=== PATIENT | male | born 1985 | race Caucasian/White ===

== ENCOUNTER 2017-04-06 20:23 | Emergency (ER) | payer SELFPAY, OTHER ==
[2017-04-06] MEDS: diazePAM 5 MG TAB PO (22:21)
[2017-04-06] MEDS: methylPREDNISolone INJ 125 MG/2 ML VIAL (J2930) IM (22:22)
== END 2017-04-06 22:59 | disposition home or self-care (01) ==
LOC: M ED 20:23
DX: S46.912A Strain of unspecified muscle, fascia and tendon at shoulder and upper arm level, left arm, initial encounter (principal); X58.XXXA Exposure to other specified factors, initial encounter; Y92.89 Other specified places as the place of occurrence of the external cause; Y93.89 Activity, other specified; Y99.8 Other external cause status; F17.210 Nicotine dependence, cigarettes, uncomplicated
CPT/HCPCS: J2930

== ENCOUNTER 2019-09-17 16:59 | Emergency (ER) | payer OTHER, SELFPAY ==
[~2019-09-17] VITALS: Ht 170.2 cm; Wt 72.7 kg
[~2019-09-17 16:59] MED LIST: OXYC-1 PO; OXYC-517 PO; PRED20TA PO; VALI5TAB PO
[2019-09-17 19:00] VITALS: BP 122/87
== END 2019-09-17 19:04 | disposition home or self-care (01) ==
LOC: M ED 16:59
DX: F11.20 Opioid dependence, uncomplicated (principal); F17.200 Nicotine dependence, unspecified, uncomplicated

== ENCOUNTER 2020-02-04 16:29 | Emergency (ER) | payer OTHER ==
[~2020-02-04] VITALS: Ht 170.2 cm; Wt 72.7 kg
[2020-02-04 17:17] LABS: HEMATOCRIT 42.1 % (42.0-52.0); HEMOGLOBIN 14.4 g/dl (13.5-17.5); MEAN CORPUSCULAR HEMOGLOBIN 29.6 pg (27.0-33.0); MEAN CORPUSCULAR HGB CONC 34.2 g/dl (32.0-36.5); MEAN CORPUSCULAR VOLUME 86.6 fl (80.0-96.0); PLATELET COUNT, AUTOMATED 235 10^3/uL (150-450); RED BLOOD COUNT 4.86 10^6/uL (4.30-6.10); WHITE BLOOD COUNT 12.4 10^3/uL (4.0-10.0)
[2020-02-04 17:42] LABS: ACETAMINOPHEN LEVEL < 2.0 UG/ML (10.0-30.0); ALBUMIN 3.7 GM/DL (3.2-5.2); ALT/SGPT 32 U/L (12-78); BILIRUBIN,DIRECT 0.2 MG/DL (0.0-0.2); BILIRUBIN,TOTAL 0.6 MG/DL (0.2-1.0); BLOOD UREA NITROGEN 13 MG/DL (7-18); CALCIUM LEVEL 8.7 MG/DL (8.5-10.1); CARBON DIOXIDE LEVEL 27 MEQ/L (21-32); CHLORIDE LEVEL 103 MEQ/L (98-107); CREATININE FOR GFR 1.13 MG/DL (0.70-1.30); GLOMERULAR FILTRATION RATE > 60.0 (>60); GLUCOSE, FASTING 117 MG/DL (70-100); POTASSIUM SERUM 3.6 MEQ/L (3.5-5.1); SALICYLATE LEVEL 2.2 MG/DL (5.0-30.0); SODIUM LEVEL 137 MEQ/L (136-145); TOTAL PROTEIN 7.1 GM/DL (6.4-8.2)
[2020-02-04 18:00] LABS: AMPHETAMINES LEVEL URINE POSITIVE (NEGATIVE); BARBITURATES URINE NEGATIVE (NEGATIVE); BENZODIAZEPINES URINE NEGATIVE (NEGATIVE); CANNABINOIDS URINE NEGATIVE (NEGATIVE); COCAINE METABOLITE URINE NEGATIVE (NEGATIVE); METHADONE URINE NEGATIVE (NEGATIVE); OPIATES URINE POSITIVE (NEGATIVE); PHENCYCLIDINE URINE NEGATIVE (NEGATIVE)
[2020-02-04 22:39] VITALS: BP 114/65
== END 2020-02-04 23:29 | disposition home or self-care (01) ==
LOC: M ED 16:29
DX: F11.120 Opioid abuse with intoxication, uncomplicated (principal)
CPT/HCPCS: 80048; 80076; 80307; 84443; 85027; 99284; G0480

== ENCOUNTER → 2020-04-01 | Outpatient (CLI) | payer OTHER ==
--- NOTE | 2020-04-01 14:26 | REP ---
INDICATION: TORSION OF APPENDIX TESTIS COMPARISON: None. TECHNIQUE: Pelayo scale and color Doppler evaluation using linear and curved array transducer with color Doppler evaluation. FINDINGS: The testicles and epididymi are relatively normal in contour, size, echogenicity, vascularity and overall appearance. Incidental 3 mm left epididymal head cyst noted. There is no evidence for intratesticular mass lesion, infectious/inflammatory process, with torsion. No obvious hydroceles or varicoceles are identified. A right appendix testis is appreciated and evaluation for vascular flow was limited due to patient motion. A small adjacent hydroceles. Findings are nonspecific and torsion of the appendix testis cannot definitively be excluded. Right testicle measures 4.5 x 2.1 x 2.7 cm. Left testicle measures 4.3 x 2.5 x 2.9 cm. IMPRESSION: 1. Normal appearance to the testicles and epididymi. 2. A mildly prominent asymmetric right appendix testis is appreciated and motion limits evaluation for associated vascularity. Close clinical observation may be warranted. <Electronically signed by Deep Coy > 04/01/20 [id number]
== END ==
LOC: M RAD 13:38
PROVIDERS: ATTEND Surgery
DX: N44.03 Torsion of appendix testis (principal)

== ENCOUNTER 2020-04-29 22:12 | Emergency (ER) | payer OTHER ==
[~2020-04-29] VITALS: Ht 170.2 cm; Wt 74.6 kg
[2020-04-29 22:13] VITALS: BP 144/88
--- OUTSIDE RECORDS SUMMARY | 2020-04-29 22:20 | CCD | Continuity of Care Document ---
Author Author Feliciano GARCIA M.D. Organization Unknown Address [address] [place] [address] Phone [phone] Problems Description No Information Available Social History Type Date Description Comments Sex Unknown Allergies, Adverse Reactions, Alerts Description No Known Drug Allergies Medications Description No Information Available Immunizations Description No Information Available Vital Signs Date Vital Result Comment 03/11/2020 8:41am BP Systolic 123 mmHg BP Diastolic 82 mmHg Heart Rate 84 /min Respiratory Rate 18 /min Body Temperature 97.5 F Weight 149.00 lb Results Description No Information Available Procedures Description No Information Available Medical Devices Description No Information Available Encounters Description No Information Available Assessments Description No Information Available Plan of Treatment No Information Available Functional Status Description No Information Available Mental Status Description No Information Available Referrals Description No Information Available
--- OUTSIDE RECORDS SUMMARY | 2020-04-29 22:20 | CCD ---
Author Author Manoj Feliciano Lawrencewna Organization Unknown Address [address] [place] [address] Phone Unavailable Care Team Providers Care Phlebotomist Medical Lab Assistant Name Role Phone Cynthia Aranda PCP Allergies, Adverse Reactions, Alerts No Data in Section Problem List Concept Problem Description Status Start Date Created Date Resolv ed Date Snomed Code F11.20 Opioid Use Disorder, Severe Active 03/12/2020 Medications No Data in Section Social History Social History Element Description Concept Effective Date Smoking Status Unknown if ever smoked [id number] Immunizations No Data in Section Vital Signs No Data in Section Procedures Date Concept Id Description Targeted Site Concept Targeted Site Concept Type 03/11/2020 H2011 Crisis Intervention - Brief CPT Patient has no history of implantable de vices Encounters Encounter Start Date End Date Encounter Type Description Diagnosis Di agnosis Desc Location Author First Name Author Last Name Npid Taxonomy Cod e Taxonomy Desc Phone Number Location Addr1 Location Addr2 Location [facility] Location Sta Location [facility] [id number] 03/11/2020 03/11/2020 H2011 Crisis Intervention - Brief F11.20 Opioid dependence, uncomplicated [facility] Assisted Manoj [place] [id number] Licensed Appraiser [phone] [address] [place] [address] Plan of Treatment No Data in Section Lab Results No Data in Section Instructions No Data in Section Insurance Providers Insurance Id Policy Effective Date Policy Thru Date Company N caesar [id number] 2020 [facility]
--- OUTSIDE RECORDS SUMMARY | 2020-04-29 22:20 | CCD | Continuity of Care Document ---
Author Author Feliciano GARCIA M.D. Organization Unknown Address [address] [place] [address] Phone [phone] Problems Description No Information Available Social History [...]
--- OUTSIDE RECORDS SUMMARY | 2020-04-29 22:20 | CCD ---
Author Author [facility] Organization [facility] Address Unknown Phone Unavailable Care Team Providers Care [employer] T[employer] Curer Name Role Phone Lila ISABEL MD Unavailable Unavailable CHALOLila MD Unavailable Unavailable CHALOLila MD Unavailable Unavailable CHALOLila MD Unavailable Unavailable CHALOLila MD Unavailable Unavailable CHALOLila MD Unavailable Unavailable CHALOLila MD Unavailable Unavailable CHALOLila MD Unavailable Unavailable CHALOLila BLAIR MD Unavailable Unavailable CHALOLila BLAIR MD Unavailable Unavailable CHALOLila MD Unavailable Unavailable CHALOLila MD Unavailable Unavailable CHALOLila MD Unavailable Unavailable CHALOLila MD Unavailable Unavailable CHALOLila MD Unavailable Unavailable CHALOLila MD Unavailable Unavailable CHALOLila MD Unavailable Unavailable CHALOLila MD Unavailable Unavailable CHALOLila MD Unavailable Unavailable CHALOLila MD Unavailable Unavailable CHALOLila BLAIR MD Unavailable Unavailable Lila ISABEL MD Unavailable Unavailable Lila ISABEL MD Unavailable Unavailable Lila ISABEL MD Unavailable Unavailable Lila ISABEL MD Unavailable Unavailable Lila ISABEL MD Unavailable Unavailable Lila ISABEL MD Unavailable Unavailable CHALOLila MD Unavailable Unavailable CHALOLila MD Unavailable Unavailable CHALOLila MD Unavailable Unavailable CHALO, M ELOY TAN Unavailable Unavailable CHALO, M ELOY MD Unavailable Unavailable CHALO, M ELOY MD Unavailable Unavailable CHALO, M ELOY MD Unavailable Unavailable CHALO, M ELOY MD Unavailable Unavailable CHALO, M ELOY MD Unavailable Unavailable CHALO, M ELOY MD Unavailable Unavailable CHALO, M ELOY MD Unavailable Unavailable CHALO, M ELOY MD Unavailable Unavailable CHALO, M ELOY MD Unavailable Unavailable CHALO, M ELOY MD Unavailable Unavailable CHALO, M ELOY MD Unavailable Unavailable CHALO, M ELOY MD Unavailable Unavailable Cynthia Aranda Unavailable Re-disclosure Warning The records that you are about to access may contain information from federally-assisted alcohol or drug abuse programs. If such information is present, then the following federally mandated warning applies: This information has been disclosed to you from records protected by federal confidentiality rules (42 CFR part 2). The federal rules prohibit you from making any further disclosure of this information unless further disclosure is expressly permitted by the written consent of the person to whom it pertains or as otherwise permitted by 42 CFR part 2. A general authorization for the release of medical or other information is NOT sufficient for this purpose. The Federal rules restrict any use of the information to criminally investigate or prosecute any alcohol or drug abuse patient.The records that you are about to access may contain highly sensitive health information, the redisclosure of which is protected by Article 27-F of the [facility] Public Health law. If you continue you may have access to information: Regarding HIV / AIDS; Provided by facilities licensed or operated by the [facility] Office of Mental Health; or Provided by the [facility] Office for People With Developmental Disabilities. If such information is present, then the following [facility] mandated warning applies: This information has been disclosed to you from confidential records which are protected by state law. State law prohibits you from making any further disclosure of this information without the specific written consent of the person to whom it pertains, or as otherwise permitted by law. Any unauthorized further disclosure in violation of state law may result in a fine or mcfp sentence or both. A general authorization for the release of medical or other information is NOT sufficient authorization for further disc losure. Encounters Encounter Providers Location Date Indications Data Source(s ) Extended Individual Psychotherapy - 45 min Attender: Kiko Aranda [facility] 03/25/2020 12:15:00 PM EST - 03/25/2020 12:15:00 PM EST [facility] ([facility]) Attender: Cynthia Aranda 03/25/2020 12:00:[address] [facility] ([facility]) Attender: Cynthia Aranda 03/12/2020 12:00:[address] [facility] ([facility]) Crisis Intervention - Brief Attender: Cynthia Aranda [facility] 03/11/2020 09:45:00 AM EST - 03/11/2020 09:45:00 AM EST [facility] ([facility]) Outpatient CPSCAORT-LABEJN 09/18/2019 09:45:00 AM EDT [facility] Inpatient Attender: ELOY ISABEL MDAdmitter: ELOY ISABEL MD ED-MSP 09/17/2019 09:47:00 PM EDT - 09/23/2019 08:59:00 AM EDT F19.20 [facility] F19.20 Patient discharged. Medications Medication Brand Name Start Date Product Form Dose Route Admi nistrative Instructions Pharmacy Instructions Status Indications Reaction Description Data Source(s) 1 mg 05/08/2019 12:00:00 AM EST tablet 30 TAKE 1 TABLET BY MOUTH TWICE A DAY MAXIMUM DAILY DOSE = 2 TABLETS TAKE 1 TABLET BY MOUTH TWICE A DAY MAXIM UM DAILY DOSE = 2 TABLETS SOLD: 05/08/2019 [facility] 1 mg 03/20/2019 12:00:00 AM EST tablet 30 TAKE ONE TABLET BY MOUTH TWICE A DAY NEEDED MAXIMUM DAILY DOSE = TWO TABLETS TAKE ONE TABLET BY MOUTH TWICE A DAY NEEDED MAXIMUM DAILY DOSE = TWO TABLETS SOLD: 03/21/2019 [facility] 10-325 mg 03/20/2019 12:00:00 AM EST tablet 60 TAKE ONE TABLET BY MOUTH EVERY 6 HOURS MAXIMUM DAILY DOSE = FOUR TABLETS TAKE ONE TABLET BY MOUTH EVERY 6 HOURS MAXIMUM DAILY DOSE = FOUR TABLETS SOLD: 03/21/2019 [facility] Insurance Providers Payer name Policy type / Coverage type Policy ID Covered green party ID Covered green party's relationship to mobley Policy [employer] Plan Information [place] [employer] [id number] SP [id number] [facility] DEPT.OF CORRECTIONAL O [id number] O [id number] [facility] [id number] [address] [facility] [id number] S [id number] SELF PAY ONLY [id number] SP [id number] 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 SELF PAY S O UNAVAILABLE UNAVAILA BLE SELF PAY UNAVAILABLE SP UNAVAILA BLE MEDICAID [id number] S [id number] SELF-PAY [phone] S [phone] SELF-PAY UNAVAILABLE S UNAVAILA BLE OTHER1 [id number] S [id number] Problems, Conditions, and Diagnoses Code Display Name Description Problem Type Effective Dates Data Source(s) F43.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 Condition 03/25/2020 12:00:00 AM EST [facility] ([facility]) F11.20 Opioid dependence, uncomplicated Opioid Use Disorder, Severe Condition 03/25/2020 12:00:00 AM EST [facility] ([facility]) M54.5 Low back pain LOW BACK PAIN Diagnosis 09/17/2019 09:47:00 PM [facility] Z86.59 Personal history of other mental and beh avioral disorders PERSONAL HISTORY OF OTHER MENTAL AND BEHAVIORAL DISORDERS Diagnosis 09/16 09:47:00 PM [facility] Z68.24 Body mass index (BMI) 24.0-24.9, adult B CJ MASS INDEX (BMI) 24.0-24.9, ADULT Diagnosis 09/17/2019 09:47:00 PM [facility] spital E46 Unspecified protein-calorie malnutrition UNSPECIFIED PROTEIN-CALORIE MALNUTRITION Diagnosis 09/17/2019 09:47:00 PM [facility] spital M62.82 Rhabdomyolysis RHABDOMYOLYSIS Diagnosis 09/17/2019 09:47: 00 PM [facility] R73.9 Hyperglycemia, unspecified HYPERGLYCEMIA, UNSPECIFIED Diagnosis 09/17/2019 09:47:00 PM [facility] D72.829 Elevated white blood cell count, unspeci fied ELEVATED WHITE BLOOD CELL COUNT, UNSPECIFIED Diagnosis 09/17/2019 09:47:00 PM [facility] spital F14.10 Cocaine abuse, uncomplicated COCAINE ABUSE, UNCOMPLICA ARACELY Diagnosis 09/17/2019 09:47:00 PM [facility] F15.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, uncomplicated OTH ER STIMULANT ABUSE, UNCOMPLICATED Diagnosis 09/17/2019 09:47:00 PM [facility] spital F17.210 Nicotine dependence, cigarettes, uncompl icated NICOTINE DEPENDENCE, CIGARETTES, UNCOMPLICATED Diagnosis 09/17/2019 09:47:00 PM [facility] E86.0 Dehydration DEHYDRATION Diagnosis 09/17/2019 09:47:00 PM [facility] F32.9 Major depressive disorder, single episod e, unspecified MAJOR DEPRESSIVE DISORDER, SINGLE EPISODE, UNSPECIFIED Diagnosis 09/17/2019 09:47:00 PM [facility] E87.6 Hypokalemia HYPOKALEMIA Diagnosis 09/17/2019 09:47:00 PM [facility] F11.23 Opioid dependence with withdrawal OPIOID DEPENDE NCE WITH WITHDRAWAL Diagnosis 09/17/2019 09:47:00 PM [facility] Surgeries/Procedures Procedure Description Date Indications Data Source(s) Extended Individual Psychotherapy - 45 min 03/25/2020 12:00:00 AM [facility] - 03/25/2020 12:00:00 AM [facility] ([facility]) Extended Individual Psychotherapy - 45 min 0 12:00:00 AM [facility] ([facility]) Crisis intervention service, per 15 minutes 03/12/2020 12:00:00 AM EST - 03/12/2020 12:00:00 AM [facility] ([facility]) Crisis intervention service, per 15 minutes 03/11/2020 12:00:00 AM [facility] Medication Management for Substance Abuse Treatment, N aloxone MEDS MGMT FOR SUBSTANCE ABUSE TREATMENT, NALOXONE 09/18/2019 12:00:00 AM [facility] Individual Counseling for Substance Abuse Treatment, C ontinuing Care INDIV MANAGER CONFIGURATION FOR SUBSTANCE ABUSE TREATMENT, CONTINUING CARE 09/17/2019 12:00:00 AM [facility] Detoxification Services for Substance Abuse Treatment DETOXIFICATION SERVICES FOR SUBSTANCE ABUSE TREATMENT 09/17/2019 12:00:00 AM EDT [facility] Results ID Date Data Source [id number] 09/20/2019 06:38:00 AM [facility] Name Value Range Interpretation Code Description Data Rashmi rce(s) Supporting Document(s) Magnesium 1.8-2.4 Normal (applies to non-numeric resul ts) [facility] ID Date Data Source [id number] 09/20/2019 06:38:00 AM [facility] Name Value Range Interpretation Code Description Data Rashmi rce(s) Supporting Document(s) Sodium 142 mmol/L 136-145 Normal (applies to non-numeric resul ts) [facility] Potassium 3.5-5.1 Normal (applies to non-numeric resul ts) [facility] Chloride 105 mmol/L 98-107 Normal (applies to non-numeric resul ts) [facility] Carbon Dioxide CO2 21-32 Normal (applies to non-numer ic results) [facility] Anion Gap 5.0-16.0 Normal (applies to non-numeric resul ts) [facility] BUN 8 mg/dL 7-18 Normal (applies to non-numeric results) [facility] Creatinine,Serum 0.8-1.5 Normal (applies to non-numeric results) [facility] GFR >60 Normal (applies to non-numeric results) [facility] Glucose Level 100 mg/dL 60-99 Above high normal [facility] Reference range is only applicable when patient is fasting Note the following drug interference: Sulfasalazine Sulfapyridine Can see falsely depressed Can see falsely elevated result with up to 17% results with up to 11% decrease in measurement increase in measurement Recommend patients be collected for this test prior to administration of either drug. Calcium 8.5-10.1 Normal (applies to non-numeric resul ts) [facility] Bilirubin,Total 0.1-1.9 Normal (applies to non-numeric results) [facility] SGOT(AST) 19 U/L 15-37 Normal (applies to non-numeric resul ts) [facility] Note the following drug interference: Sulfasalazine Sulfapyridine Can see falsely depressed Can see falsely elevated result with up to 10% results with up to 10% decrease in measurement increase in measurement Recommend patients be collected for this test prior to administration of either drug. SGPT(ALT) 35 U/L 12-78 Normal (applies to non-numeric resul ts) [facility] Note the following drug interference: Sulfasalazine Sulfapyridine Can see falsely depressed Can see falsely elevated result with up to 29% results with up to 10% decrease in measurement increase in measurement Recommend patients be collected for this test prior to administration of either drug. Alkaline Phosphatase 74 U/L 38-126 Normal (applies to non-num caitlyn results) [facility] can increase Alkaline Phosp le vels up to 2 times the normal adult value. Normal values for children and adolescents are 2 to 3 times the normal adult value. Total Protein 6.0-8.2 Normal (applies to non-numeric re sults) [facility] Albumin Level 3.4-5.0 Below low normal [facility] ID Date Data Source [id number] 09/18/2019 02:30:00 PM EDT [facility] Name Value Range Interpretation Code Description Data Rashmi rce(s) Supporting Document(s) Hemoglobin A1c 4.4-6.2 Normal (applies to non-numeric r esults) [facility] Estimated Avg Glucose 114 mg/dL 126-240 Below low normal [facility] ID Date Data Source [id number] 09/18/2019 09:22:00 AM [facility] Name Value Range Interpretation Code Description Data Rashmi rce(s) Supporting Document(s) Sodium 140 mmol/L 136-145 Normal (applies to non-numeric resul ts) [facility] Potassium 3.5-5.[address] [facility] Chloride 104 mmol/L 98-107 Normal (applies to non-numeric resul ts) [facility] Carbon Dioxide CO2 21-32 Normal (applies to non-numer ic results) [facility] Anion Gap 5.0-16.0 Normal (applies to non-numeric resul ts) [facility] BUN 9 mg/dL 7-18 Normal (applies to non-numeric results) [facility] Creatinine,Serum 0.8-1.5 Normal (applies to non-numeric results) [facility] GFR >60 Normal (applies to non-numeric results) [facility] Glucose Level 113 mg/dL 60-99 Above high normal [facility] Reference range is only applicable when patient is fasting Note the following drug interference: Sulfasalazine Sulfapyridine Can see falsely depressed Can see falsely elevated result with up to 17% results with up to 11% decrease in measurement increase in measurement Recommend patients be collected for this test prior to administration of either drug. Calcium 8.5-10.1 Normal (applies to non-numeric resul ts) [facility] Bilirubin,Total 0.1-1.9 Normal (applies to non-numeric results) [facility] SGOT(AST) 80 U/L 15-37 Above high normal [facility]ital Note the following drug interference: Sulfasalazine Sulfapyridine Can see falsely depressed Can see falsely elevated result with up to 10% results with up to 10% decrease in measurement increase in measurement Recommend patients be collected for this test prior to administration of either drug. SGPT(ALT) 51 U/L 12-78 Normal (applies to non-numeric resul ts) [facility] Note the following drug interference: Sulfasalazine Sulfapyridine Can see falsely depressed Can see falsely elevated result with up to 29% results with up to 10% decrease in measurement increase in measurement Recommend patients be collected for this test prior to administration of either drug. Alkaline Phosphatase 85 U/L 38-126 Normal (applies to non-num caitlyn results) [facility] can increase Alkaline Phosp le vels up to 2 times the normal adult value. Normal values for children and adolescents are 2 to 3 times the normal adult value. Total Protein 6.0-8.2 Normal (applies to non-numeric re sults) [facility] Albumin Level 3.4-5.0 Below low normal [facility] ID Date Data Source [id number] 09/18/2019 07:27:00 AM EDT [facility] Name Value Range Interpretation Code Description Data Rashmi rce(s) Supporting Document(s) White Blood Count 3.5-10.5 Normal (applies to non-numeri c results) [facility] Red Blood Count 4.30-5.70 Normal (applies to non-numeric results) [facility] Hemoglobin 13.5-17.5 Normal (applies to non-numeric resul ts) [facility] Hematocrit 38.8-50.0 Normal (applies to non-numeric resul ts) [facility] Mean Corpuscular Volume 81.2-95.1 Normal (applies to non- numeric results) [facility] Mean Corpuscular Hgb 25.6-32.2 Normal (applies to non-num caitlyn results) [facility] Mean Corpuscular Hgb Conc 32.0-36.0 Normal (applies to no n-numeric results) [facility] Red Cell Distribution Width 11.8-15.6 Normal (appli es to non-numeric results) [facility] Platelet Count 267 x10 3/uL 150-450 Normal (applies to non-numeric results) [facility] Mean Platelet Volume 9.4-12.4 Normal (applies to non-num caitlyn results) [facility] Neutrophils% (Auto) 31.0-71.0 Normal (applies to non-nume ricci results) [facility] Lymphocytes% (Auto) 20.0-55.0 Normal (applies to non-nume ricci results) [facility] Monocytes% (Auto) 4.0-12.0 Normal (applies to non-numeri c results) [facility] Eosinophils% (Auto) 1.0-8.0 Normal (applies to non-nume ricci results) [facility] Basophils% (Auto) 0.0-2.0 Normal (applies to non-numeri c results) [facility] Immature Granulocytes% (Auto) 0.0-2.0 Normal (marcella lies to non-numeric results) [facility] Neutrophils# (Auto) 1.50-6.20 Normal (applies to non-nume ricci results) [facility] Lymphocytes# (Auto) 1.20-4.00 Normal (applies to non-nume ricci results) [facility] Monocytes# (Auto) 0.00-0.90 Above high normal [facility] Eosinophils# (Auto) 0.00-0.50 Normal (applies to non-nume ricci results) [facility] Basophils# (Auto) 0.00-0.20 Normal (applies to non-numeri c results) [facility] Immature Granulocytes# (Auto) 0.00-7.00 No rmal (applies to non-numeric results) [facility] ID Date Data Source [id number] 09/17/2019 11:53:00 PM EDT [facility] Name Value Range Interpretation Code Description Data Rashmi rce(s) Supporting Document(s) UDS Phencyclidine Screen Negative Normal (applies to non -numeric results) [facility] UDS Benzodiazepines Screen Negative Normal (applies to n on-numeric results) [facility] UDS Cocaine Screen Negative [facility] UDS Ampetamine Screen Negative [facility] UDS Cannabinoids Screen Negative Normal (applies to non- numeric results) [facility] UDS Opiates Screen Negative [facility] UDS Barbiturates Screen Negative Normal (applies to non- numeric results) [facility] UDS Tricyclic Screen Negative Normal (applies to non-num caitlyn results) [facility] Therapeutic Drug Ranges for Emergency Threshold Levels (ng/mL) PCP 25 Benzodiazepine 300 Cocaine 300 Amphetamines 1000 Cannabinoids 50 Opiates 300 Barbiturates 300 Tricyclic(TCA) 1000 Emergency toxicology analytes exceeding the therapeutic threshold levels are positive. Positive findings are unconfirmed. Positive drug levels may be confirmed at the request of the ordering provider. Results are to be used for medical treatment purposes only. ID Date Data Source [id number] 09/17/2019 11:32:00 PM EDT [facility] Collected By: Nurse Initials: AT Time Collected: 2300 Name Value Range Interpretation Code Description Data Rashmi rce(s) Supporting Document(s) Color,Urine Colorl-Dk Y Normal (applies to non-numeric res ults) [facility] Clarity,Urine Clear Normal (applies to non-numeric re sults) [facility] Specific [place],Urine 1.005-1.030 Normal (applies to non- numeric results) [facility] pH,Urine 5.0-8.0 Normal (applies to non-numeric resul ts) [facility] Protein,Urine Negative Normal (applies to non-numeric re sults) [facility] Glucose,Urine Negative Normal (applies to non-numeric re sults) [facility] Ketones,Urine Negative Normal (applies to non-numeric re sults) [facility] Blood,Urine Negative Normal (applies to non-numeric resu lts) [facility] Bilirubin,Urine Negative Normal (applies to non-numeric results) [facility] Urobilinogen,Urine 0.2-1.0 Normal (applies to non-numer ic results) [facility] Leukocyte Esterase,Urine Negative Normal (applies to non -numeric results) [facility] Nitrite,Urine Negative Normal (applies to non-numeric re sults) [facility] ID Date Data Source [id number] 09/20/2019 12:51:00 PM EDT [facility] Name Value Range Interpretation Code Description Data Rashmi e(s) Supporting Document(s) Hepatitis A Ab,IgG result Normal (applies to no n-numeric results) [facility] Result indicates no past exposure or imm unity to hepatitis A infection. REFERENCE VALUE Unvaccinated: Negative Vaccinated: Positive Test Performed by: [facility] [address] [place] [address] [employer] Car Re[employer]er: Manas Morales M.D. Ph.D.; CLIA# [id number] ID Date Data Source [id number] 09/20/2019 11:55:00 AM EDT [facility] Name Value Range Interpretation Code Description Data Rashmi rce(s) Supporting Document(s) Hepatitis A Ab,IgG result Normal (applies to no n-numeric results) [facility] Result indicates no past exposure or imm unity to hepatitis A infection. REFERENCE VALUE Unvaccinated: Negative Vaccinated: Positive Test Performed by: [facility] [address] [place] [address] [employer] Re[employer]er: Manas Morales M.D. Ph.D.; [facility]# [id number] ID Date Data Source [id number] 09/19/2019 03:33:00 PM EDT [facility] Value Range Interpretation Code Description Data Rashmi rce(s) Supporting Document(s) Chlamydia,Urine Negative Normal (applies to non-numeric results) [facility] Test Performed By: [place] [address] Director: Janet Zamora MD . GC Urine Negative Normal (applies to non-numeric resul ts) [facility] Test Performed By: [place] [address] Director: Janet Zamora MD . Methodology: Second generation nucleic acid amplification. ID Date Data Source [id number] 09/18/2019 02:36:00 PM EDT [facility] Value Range Interpretation Code Description Data Rashmi rce(s) Supporting Document(s) HIV Screen result Nonreactive Normal (applies to non-numer ic results) [facility] Test Performed By: [facility] [address] [place] [address] Director: Janet Zamora MD ID Date Data Source [id number] 09/18/2019 02:35:00 PM EDT [facility] Value Range Interpretation Code Description Data Rashmi rce(s) Supporting Document(s) CPK result 1152 U/L 39-308 [facility] Test Performed By: [facility] [address] [place] [address] Director: Janet Zamora MD With CPK's greater than 800 consider Rhabdomyolysis ID Date Data Source [id number] 09/18/2019 02:35:00 PM EDT [facility] Name Value Range Interpretation Code Description Data Rashmi rce(s) Supporting Document(s) Hepatitis C Virus Ab result Nonreactive Norm al (applies to non-numeric results) [facility] Test Performed By: [facility] [address] [place] [address] Director: Janet Zamora MD ID Date Data Source [id number] 09/18/2019 02:35:00 PM EDT [facility] Value Range Interpretation Code Description Data Rashmi rce(s) Supporting Document(s) Hep Bs Ag result T-Test Nonreactive Normal (applies to non -numeric results) [facility] Test Performed By: [place] [address] Director: Janet Zamora MD ID Date Data Source [id number] 09/18/2019 02:35:00 PM EDT [facility] Value Range Interpretation Code Description Data Rashmi rce(s) Supporting Document(s) Syphilis Serology result Nonreactive Normal (applies to non-numeric results) [facility] Test Performed By: [place] [address] Director: Janet Zamora MD ID Date Data Source [id number] 09/18/2019 01:31:00 PM EDT [facility] Value Range Interpretation Code Description Data Rashmi rce(s) Supporting Document(s) HIV 1/2 Ab p24 Ag Screen Nonreactive Normal (applies to non-numeric results) [facility] Test Performed By: [facility] [address] [place] [address] Director: Janet Zamora MD ID Date Data Source [id number] 09/18/2019 01:28:00 PM EDT [facility] Value Range Interpretation Code Description Data Rashmi rce(s) Supporting Document(s) Hep C Ab-T Test Nonreactive Normal (applies to non-numeric results) [facility] Test Performed By: [facility] [address] [place] [address] Director: Janet Zamora MD ID Date Data Source [id number] 09/18/2019 01:28:00 PM EDT [facility] Name Value Range Interpretation Code Description Data Rashmi rce(s) Supporting Document(s) Hep Bs Ag Result T-Test Nonreactive Normal (applies to non -numeric results) [facility] Test Performed By: [facility] [address] [place] [address] Director: Janet Zamora MD ID Date Data Source [id number] 09/18/2019 01:28:00 PM EDT [facility] Name Value Range Interpretation Code Description Data Rashmi rce(s) Supporting Document(s) Syphilis Serology Nonreactive Normal (applies to non-numer ic results) [facility] Test Performed By: [facility] [address] [place] [address] Director: Janet Zamora MD ID Date Data Source [id number] 09/18/2019 12:35:00 PM EDT [facility] Name Value Range Interpretation Code Description Data Rashmi rce(s) Supporting Document(s) CPK 1152 U/L 39-308 Above high normal [facility] Test Performed By: [facility] [address] [place] [address] Director: Janet Zamora MD With CPK's greater than 800 consider Rhabdomyolysis ID Date Data Source [id number] 09/17/2019 11:26:00 PM EDT [facility] Name Value Range Interpretation Code Description Data Rashmi rce(s) Supporting Document(s) Sodium 136 mmol/L 136-145 Normal (applies to non-numeric resul ts) [facility] Potassium 3.5-5.[address] [facility] Chloride 100 mmol/L 98-107 Normal (applies to non-numeric resul ts) [facility] Carbon Dioxide CO2 21-32 Normal (applies to non-numer ic results) [facility] Anion Gap 5.0-16.0 Normal (applies to non-numeric resul ts) [facility] BUN 14 mg/dL 7-18 Normal (applies to non-numeric results) [facility] Creatinine,Serum 0.8-1.5 Normal (applies to non-numeric results) [facility] GFR >60 Normal (applies to non-numeric results) [facility] Glucose Level 125 mg/dL 60-99 Above high normal [facility] Reference range is only applicable when patient is fasting Note the following drug interference: Sulfasalazine Sulfapyridine Can see falsely depressed Can see falsely elevated result with up to 17% results with up to 11% decrease in measurement increase in measurement Recommend patients be collected for this test prior to administration of either drug. Calcium 8.5-10.1 Normal (applies to non-numeric resul ts) [facility] Bilirubin,Total 0.1-1.9 Normal (applies to non-numeric results) [facility] SGOT(AST) 101 U/L 15-37 Above high normal [facility] Note the following drug interference: Sulfasalazine Sulfapyridine Can see falsely depressed Can see falsely elevated result with up to 10% results with up to 10% decrease in measurement increase in measurement Recommend patients be collected for this test prior to administration of either drug. SGPT(ALT) 48 U/L 12-78 Normal (applies to non-numeric resul ts) [facility] Note the following drug interference: Sulfasalazine Sulfapyridine Can see falsely depressed Can see falsely elevated result with up to 29% results with up to 10% decrease in measurement increase in measurement Recommend patients be collected for this test prior to administration of either drug. Alkaline Phosphatase 90 U/L 38-126 Normal (applies to non-num caitlyn results) [facility] can increase Alkaline Phosp le vels up to 2 times the normal adult value. Normal values for children and adolescents are 2 to 3 times the normal adult value. Total Protein 6.0-8.2 Normal (applies to non-numeric re sults) [facility] Albumin Level 3.4-5.0 Below low normal [facility] ID Date Data Source [id number] 09/17/2019 11:26:00 PM EDT [facility] Name Value Range Interpretation Code Description Data Rashmi rce(s) Supporting Document(s) Bilirubin,Direct 0.05-0.20 Normal (applies to non-numeric results) [facility] ID Date Data Source [id number] 09/17/2019 11:26:00 PM [facility] Value Range Interpretation Code Description Data Rashmi rce(s) Supporting Document(s) Phosphorus 2.5-4.9 Normal (applies to non-numeric resul ts) [facility] ID Date Data Source [id number] 09/17/2019 11:26:[address] [facility] Value Range Interpretation Code Description Data Rashmi rce(s) Supporting Document(s) Magnesium 1.8-2.4 Normal (applies to non-numeric resul ts) [facility] ID Date Data Source [id number] [facility] Code Description Data Rashmi rce(s) Supporting Document(s) Thyroid Stimulate Hormone TSH 0.358-3.74 No rmal (applies to non-numeric results) [facility] ID Date Data Source [id number] 09/17/2019 11:25:[address] [facility] Value Range Interpretation Code Description Data Rashmi rce(s) Supporting Document(s) Ethanol Less than 10.0 Normal (applies to non-numeric r esults) [facility] ID Date Data Source [id number] 09/17/2019 11:06:[address] [facility] Value Range Interpretation Code Description Data Rashmi rce(s) Supporting Document(s) White Blood Count 3.5-10.5 Above high normal [facility] Red Blood Count 4.30-5.70 Normal (applies to non-numeric results) [facility] Hemoglobin 13.5-17.5 Below low normal [facility] Hematocrit 38.8-50.0 Below low normal [facility] Mean Corpuscular Volume 81.2-95.1 Normal (applies to non- numeric results) [facility] Mean Corpuscular Hgb 25.6-32.2 Normal (applies to non-num caitlyn results) [facility] Mean Corpuscular Hgb Conc 32.0-36.0 Normal (applies to no n-numeric results) [facility] Red Cell Distribution Width 11.8-15.6 Normal (appli es to non-numeric results) [facility] Platelet Count 248 x10 3/uL 150-450 Normal (applies to non-numeric results) [facility] Mean Platelet Volume 9.4-12.4 Below low normal [facility] Neutrophils% (Auto) 31.0-71.0 Above high normal [facility] Lymphocytes% (Auto) 20.0-55.0 Below low normal [facility] Monocytes% (Auto) 4.0-12.0 Normal (applies to non-numeri c results) [facility] Eosinophils% (Auto) 1.0-8.0 Normal (applies to non-nume ricci results) [facility] Basophils% (Auto) 0.0-2.0 Normal (applies to non-numeri c results) [facility] Immature Granulocytes% (Auto) 0.0-2.0 Normal (marcella lies to non-numeric results) [facility] Neutrophils# (Auto) 1.50-6.20 Above high normal [facility] Lymphocytes# (Auto) 1.20-4.00 Normal (applies to non-nume ricci results) [facility] Monocytes# (Auto) 0.00-0.90 Above high normal [facility] Eosinophils# (Auto) 0.00-0.50 Normal (applies to non-nume ricci results) [facility] Basophils# (Auto) 0.00-0.20 Normal (applies to non-numeri c results) [facility] Immature Granulocytes# (Auto) 0.00-7.00 No rmal (applies to non-numeric results) [facility] ID Date Data Source [id number] 09/19/2019 03:38:00 PM EDT [facility] Name Value Range Interpretation Code Description Data Rashmi rce(s) Supporting Document(s) Chlamydia,Urine result Negative Normal (applies to non-n umeric results) [facility] Test Performed By: [facility] [address] [place] [address] Director: Janet Zamora MD . GC Urine result Negative Normal (applies to non-numeric results) [facility] Test Performed By: [facility] [address] [place] [address] Director: Janet Zamora MD . Methodology: Second generation nucleic acid amplification. Procedure Social History Code Duration Value Status Description Data Source(s ) Smoking 03/25/2020 12:00:00 AM EST Unknown if ever smoked comp leted Unknown if ever smoked [facility] ([facility] Smoking 03/12/2020 12:00:00 AM EST Unknown if ever smoked comp leted Unknown if ever smoked [facility] ([facility]) Vital Signs ID Date Data Source UNK Name Value Range Interpretation Code Description Data Source(s) Body weight 149.00 [lb_av] 149.00 [lb_av] [facility] ([facility]) Body temperature 97.5 [degF] 97.5 [degF] [facility] Respiratory rate 18 /min 18 /min [facility] ( [facility]) Heart rate 84 /min 84 /min [facility] Diastolic blood pressure 82 mm[Hg] 82 mm[Hg] [facility] ([facility]) Systolic blood pressure 123 mm[Hg] 123 mm[Hg] M EDENT ([facility]) ID Date Data Source [id number] 09/24/2019 07:54:00 AM EDT [facility] Name Value Range Interpretation Code Description Data Source(s) Weight Measurement Method 1 1 [facility] Weight (Calculated Kilograms) 69.49 69.49 [facility] Weight 2451.2 2451.2 [facility] pital Temperature Source 7 7 [facility] Temperature 98.2 98.2 [facility] Respiratory Effort 1 1 [facility] Respiratory Rate 18 18 [facility] Pulse Assessment Method 1 1 [facility] Pulse Rate 73 73 [facility] pital Height (Calculated Centimeters) 170.18 170. 18 [facility] Height 67 67 [facility] Blood Pressure 118/78 118/78 [facility] Body Mass Index (BMI) 24.0 24.0 [facility] Weight Measurement Method 1 1 [facility] Weight (Calculated Kilograms) 69.49 69.49 [facility] Weight 2451.2 2451.2 [facility] pital Temperature Source 7 7 [facility] Temperature 98.2 98.2 [facility] Respiratory Effort 1 1 [facility] Respiratory Rate 18 18 [facility] Pulse Assessment Method 1 1 [facility] Pulse Rate 73 73 [facility] pital Height (Calculated Centimeters) 170.18 170. 18 [facility] Height 67 67 [facility] pital Blood Pressure 118/78 118/78 [facility] Body Mass Index (BMI) 24.0 24.0 [facility] Weight Measurement Method 1 1 [facility] Weight (Calculated Kilograms) 69.49 69.49 [facility] Weight 2451.2 2451.2 [facility] pital Temperature Source 7 7 [facility] Temperature 98.2 98.2 [facility] Respiratory Effort 1 1 [facility] Respiratory Rate 18 18 [facility] Pulse Assessment Method 1 1 [facility] Pulse Rate 73 73 [facility] pital Height (Calculated Centimeters) 170.18 170. 18 [facility] Height 67 67 [facility] pital Blood Pressure 118/78 118/78 [facility] Body Mass Index (BMI) 24.0 24.0 [facility] Weight Measurement Method 1 1 [facility] Weight (Calculated Kilograms) 69.49 69.49 [facility] Weight 2451.2 2451.2 [facility] pital Temperature Source 7 7 [facility] Temperature 98.5 98.5 [facility] Respiratory Effort 1 1 [facility] Respiratory Rate 18 18 [facility] Pulse Assessment Method 4 4 [facility] Pulse Rate 88 88 [facility] pital Height (Calculated Centimeters) 170.18 170. 18 [facility] Height 67 67 [facility] pital Blood Pressure 121/79 121/79 [facility] Body Mass Index (BMI) 24.0 24.0 [facility] Weight Measurement Method 1 1 [facility] Weight (Calculated Kilograms) 69.49 69.49 [facility] Weight 2451.2 2451.2 [facility] pital Temperature Source 7 7 [facility] Temperature [address] [facility] Respiratory Effort 1 1 [facility] Respiratory Rate 17 17 [facility] Pulse Assessment Method 4 4 [facility] Pulse Rate 64 64 [facility] pital Height (Calculated Centimeters) 170.18 170. 18 [facility] Height 67 67 [facility] pital Blood Pressure 126/67 126/67 [facility] Body Mass Index (BMI) 24.0 24.0 [facility]
--- OUTSIDE RECORDS SUMMARY | 2020-04-29 22:20 | CCD ---
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 03/25/2020 Medications No Data in Section Social History Social History Element Description Concept Effective Date Smoking Status Unknown if ever smoked [id number] Immunizations No Data in Section Vital Signs No Data in Section Procedures Date Concept Id Description Targeted Site Concept Targeted Site Concept Type 03/25/2020 45168 Extended Individual Psychotherapy - 45 min CPT Patient has no history of implantable de vices Encounters Encounter Start Date End Date Encounter Type Description Diagnosis Di agnosis Desc Location Author First Name Author Last Name Npid Taxonomy Cod e Taxonomy Desc Phone Number Location Addr1 Location Addr2 Location [facility] Location [facility] Location [facility] [id number] 03/25/2020 03/25/2020 20330 Extended Individual Psych otherapy - 45 min F11.20 Opioid dependence, uncomplicated [facility] Manoj Marie [id number] Content Management Consultant [phone] [address] [facility] [address] Plan of Treatment No Data in Section Lab Results No Data in Section Instructions No Data in Section Insurance Providers Insurance Id Policy Effective Date Policy Thru Date Company N caesar [id number] 2020 [facility]
--- OUTSIDE RECORDS SUMMARY | 2020-04-29 22:20 | CCD | Continuity of Care Document ---
Author Author Feliciano GARCIA M.D. Organization Unknown Address [address] [place] [address] Phone [phone] Problems Description No Information Available Social History [...]
--- OUTSIDE RECORDS SUMMARY | 2020-04-29 22:20 | CCD | Continuity of Care Document ---
Author Author Feliciano GARCIA M.D. Organization Unknown Address [address] [place] [address] Phone [phone] Problems Description No Information Available Social History Type Date Description Comments Sex Unknown Allergies, Adverse Reactions, Alerts Description No Information Available Medications Description No Information Available Immunizations Description No Information Available Vital Signs Description No Information Available Results Description No Information Available Procedures Description No Information Available Medical Devices Description No Information Available Encounters Description No Information Available Assessments Description No Information Available Plan of Treatment No Information Available Functional Status Description No Information Available Mental Status Description No Information Available Referrals Description No Information Available
--- OUTSIDE RECORDS SUMMARY | 2020-04-29 22:23 | CCD ---
Author Author [facility] Organization [facility] Address Unknown Phone Unavailable Care Team Providers Care Coupon And Bond Collection Clerk Name Role Phone Lila ISABEL MD Unavailable [...] is protected by Article 27-F of the [facility] Public Health law. If you continue you may have access to information: Regarding HIV / AIDS; Provided by facilities licensed or operated by the [facility] Office of Mental Health; or Provided by the [facility] Office for People With Developmental Disabilities. If such information is present, then the following [facility] mandated warning applies: This information has been [...] law may result in a fine or fci sentence or both. A general authorization for the release of medical or other information is NOT sufficient authorization for further disc losure. Encounters Encounter Providers Location Date Indications Data Source(s ) Extended Individual Psychotherapy - 45 min Attender: Kiko Aranda [facility] 03/25/2020 12:15:00 PM EST - 03/25/2020 12:15:00 PM EST [facility] ([facility]) Attender: Cynthia Aranda 03/25/2020 12:00:[address] [facility] ([facility]) Attender: Cynthia Aranda 03/12/2020 12:00:[address] [facility] ([facility]) Crisis Intervention - Brief Attender: Cynthia Aranda [facility] 03/11/2020 09:45:00 AM EST - 03/11/2020 09:45:00 AM EST [facility] ([facility]) Outpatient CPSCAORT-LABEJN 09/18/2019 09:45:00 AM EDT [facility] Inpatient Attender: ELOY ISABEL MDAdmitter: ELOY ISABEL MD ED-MSP 09/17/2019 09:47:00 PM EDT - 09/23/2019 08:59:00 AM EDT F19.20 [facility] F19.20 Patient discharged. Medications Medication Brand [...] type / Coverage type Policy ID Covered libertarian ID Covered libertarian's relationship to mobley Policy Mob[employer] Plan Information [employer] FAC [id number] SP [id number] [facility] DEPT.OF CORRECTIONAL O [id number] O [id number] [facility] [id number] [address] 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 Condition 03/25/2020 12:00:00 AM EST [facility] ([facility]) F11.20 Opioid dependence, uncomplicated Opioid Use Disorder, Severe Condition 03/25/2020 12:00:00 AM EST [facility] ([facility]) M54.5 Low back pain LOW BACK PAIN Diagnosis 09/17/2019 09:47:[facility] Z86.59 Personal history of other mental and beh avioral disorders PERSONAL HISTORY OF OTHER MENTAL AND BEHAVIORAL DISORDERS Diagnosis 09/16 09:47:00 PM [facility] Z68.24 Body mass index (BMI) 24.0-24.9, adult B CJ MASS INDEX (BMI) 24.0-24.9, ADULT Diagnosis 09/17/2019 09:47:00 PM [facility] E46 Unspecified protein-calorie malnutrition UNSPECIFIED PROTEIN-CALORIE MALNUTRITION Diagnosis 09/17/2019 09:47:00 PM [facility] M62.82 Rhabdomyolysis RHABDOMYOLYSIS Diagnosis 09/17/2019 09:47: 00 PM [facility] R73.9 Hyperglycemia, unspecified HYPERGLYCEMIA, UNSPECIFIED Diagnosis 09/17/2019 09:47:00 PM [facility] D72.829 Elevated white blood cell count, unspeci fied ELEVATED WHITE BLOOD CELL COUNT, UNSPECIFIED Diagnosis 09/17/2019 09:47:00 PM [facility] F14.10 Cocaine abuse, uncomplicated COCAINE ABUSE, UNCOMPLICA ARACELY Diagnosis 09/17/2019 09:47:00 PM [facility] F15.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, uncomplicated OTH ER STIMULANT ABUSE, UNCOMPLICATED Diagnosis 09/17/2019 09:47:00 PM [facility] F17.210 Nicotine dependence, cigarettes, uncompl icated NICOTINE DEPENDENCE, CIGARETTES, UNCOMPLICATED Diagnosis 09/17/2019 09:47:00 PM [facility] E86.0 Dehydration DEHYDRATION Diagnosis 09/17/2019 09:47:00 PM [facility] F32.9 Major depressive disorder, single episod e, unspecified MAJOR DEPRESSIVE DISORDER, SINGLE EPISODE, UNSPECIFIED Diagnosis 09/17/2019 09:47:00 PM [facility] E87.6 Hypokalemia HYPOKALEMIA Diagnosis 09/17/2019 09:47:00 PM [facility] F11.23 Opioid dependence with withdrawal OPIOID DEPENDE NCE WITH WITHDRAWAL Diagnosis 09/17/2019 09:47:00 PM [facility] Surgeries/Procedures Procedure Description Date Indications Data Source(s) Extended Individual Psychotherapy - 45 min 03/25/2020 12:00:00 AM [facility] - 03/25/2020 12:00:00 AM [facility] ([facility]) Extended Individual Psychotherapy - 45 min 0 12:00:00 AM [facility] ([facility]) Crisis intervention service, per 15 minutes 03/12/2020 12:00:00 AM EST - 03/12/2020 12:00:00 AM [facility] ([facility]) Crisis intervention service, per 15 minutes 03/11/2020 12:00:00 AM [facility]) Medication Management for Substance Abuse Treatment, N aloxone MEDS MGMT FOR SUBSTANCE ABUSE TREATMENT, NALOXONE 09/18/2019 12:00:00 AM [facility] Individual Counseling for Substance Abuse Treatment, C ontinuing Care INDIV CHUCK TENDER FOR SUBSTANCE ABUSE TREATMENT, CONTINUING CARE 09/17/2019 12:00:00 AM [facility] Detoxification Services for Substance Abuse Treatment DETOXIFICATION SERVICES FOR SUBSTANCE ABUSE TREATMENT 09/17/2019 12:00:00 AM EDT [facility] Results ID Date Data Source [id number] 09/20/2019 06:38:00 AM [facility] Name Value Range Interpretation Code Description Data Rashmi rce(s) Supporting Document(s) Magnesium 1.8-2.4 Normal (applies to non-numeric resul ts) [facility] ID Date Data Source [id number] 09/20/2019 06:38:00 AM [facility] Name Value Range Interpretation Code Description Data Rashmi rce(s) Supporting Document(s) Sodium 142 mmol/L 136-145 Normal (applies to non-numeric resul ts) [facility] Potassium 3.5-5.1 Normal (applies to non-numeric resul ts) [facility] Chloride 105 mmol/L 98-107 Normal (applies to non-numeric resul ts) [facility] Carbon Dioxide CO2 21-32 Normal (applies to non-numer ic results) [facility] Anion Gap 5.0-16.0 Normal (applies to non-numeric resul ts) [facility] BUN 8 mg/dL 7-18 Normal (applies to non-numeric results) [facility] Creatinine,Serum 0.8-1.5 Normal (applies to non-numeric results) [facility] GFR >60 Normal (applies to non-numeric results) [facility] Glucose Level 100 mg/dL 60-99 Above high normal [facility] Reference range is only applicable when patient is fasting Note the following drug interference: Sulfasalazine Sulfapyridine Can see falsely depressed Can see falsely elevated result with up to 17% results with up to 11% decrease in measurement increase in measurement Recommend patients be collected for this test prior to administration of either drug. Calcium 8.5-10.1 Normal (applies to non-numeric resul ts) [facility] Bilirubin,Total 0.1-1.9 Normal (applies to non-numeric results) [facility] SGOT(AST) 19 U/L 15-37 Normal (applies to non-numeric resul ts) [facility] Note the following drug interference: Sulfasalazine Sulfapyridine Can see falsely depressed Can see falsely elevated result with up to 10% results with up to 10% decrease in measurement increase in measurement Recommend patients be collected for this test prior to administration of either drug. SGPT(ALT) 35 U/L 12-78 Normal (applies to non-numeric resul ts) [facility] Note the following drug interference: Sulfasalazine Sulfapyridine Can see falsely depressed Can see falsely elevated result with up to 29% results with up to 10% decrease in measurement increase in measurement Recommend patients be collected for this test prior to administration of either drug. Alkaline Phosphatase 74 U/L 38-126 Normal (applies to non-num caitlyn results) [facility] can increase Alkaline Phosp le vels up to 2 times the normal adult value. Normal values for children and adolescents are 2 to 3 times the normal adult value. Total Protein 6.0-8.2 Normal (applies to non-numeric re sults) [facility] Albumin Level 3.4-5.0 Below low normal [facility] ID Date Data Source [id number] 09/18/2019 02:30:00 PM EDT [facility] Name Value Range Interpretation Code Description Data Rashmi rce(s) Supporting Document(s) Hemoglobin A1c 4.4-6.2 Normal (applies to non-numeric r esults) [facility] Estimated Avg Glucose 114 mg/dL 126-240 Below low normal [facility] ID Date Data Source [id number] 09/18/2019 09:22:00 AM [facility] Name Value Range Interpretation Code Description Data Rashmi rce(s) Supporting Document(s) Sodium 140 mmol/L 136-145 Normal (applies to non-numeric resul ts) [facility] Potassium 3.5-5.1 Below low normal [facility] Chloride 104 mmol/L 98-107 Normal (applies to non-numeric resul ts) [facility] Carbon Dioxide CO2 21-32 Normal (applies to non-numer ic results) [facility] Anion Gap 5.0-16.0 Normal (applies to non-numeric resul ts) [facility] BUN 9 mg/dL 7-18 Normal (applies to non-numeric results) [facility] Creatinine,Serum 0.8-1.5 Normal (applies to non-numeric results) [facility] GFR >60 Normal (applies to non-numeric results) [facility] Glucose Level 113 mg/dL 60-99 Above high normal [facility] Reference range is only applicable when patient is fasting Note the following drug interference: Sulfasalazine Sulfapyridine Can see falsely depressed Can see falsely elevated result with up to 17% results with up to 11% decrease in measurement increase in measurement Recommend patients be collected for this test prior to administration of either drug. Calcium 8.5-10.1 Normal (applies to non-numeric resul ts) [facility] Bilirubin,Total 0.1-1.9 Normal (applies to non-numeric results) [facility] SGOT(AST) 80 U/L 15-37 Above high normal [facility] Note the following drug interference: Sulfasalazine Sulfapyridine Can see falsely depressed Can see falsely elevated result with up to 10% results with up to 10% decrease in measurement increase in measurement Recommend patients be collected for this test prior to administration of either drug. SGPT(ALT) 51 U/L 12-78 Normal (applies to non-numeric resul ts) [facility] Note the following drug interference: Sulfasalazine Sulfapyridine Can see falsely depressed Can see falsely elevated result with up to 29% results with up to 10% decrease in measurement increase in measurement Recommend patients be collected for this test prior to administration of either drug. Alkaline Phosphatase 85 U/L 38-126 Normal (applies to non-num caitlyn results) [facility] can increase Alkaline Phosp le vels up to 2 times the normal adult value. Normal values for children and adolescents are 2 to 3 times the normal adult value. Total Protein 6.0-8.2 Normal (applies to non-numeric re sults) [facility] Albumin Level 3.4-5.0 Below low normal [facility] ID Date Data Source [id number] 09/18/2019 07:27:00 AM EDT [facility] Name Value Range Interpretation Code Description Data Rashmi rce(s) Supporting Document(s) White Blood Count 3.5-10.5 Normal (applies to non-numeri c results) [facility] Red Blood Count 4.30-5.70 Normal (applies to non-numeric results) [facility] Hemoglobin 13.5-17.5 Normal (applies to non-numeric resul ts) [facility] Hematocrit 38.8-50.0 Normal (applies to non-numeric resul ts) [facility] Mean Corpuscular Volume 81.2-95.1 Normal (applies to non- numeric results) [facility] Mean Corpuscular Hgb 25.6-32.2 Normal (applies to non-num caitlyn results) [facility] Mean Corpuscular Hgb Conc 32.0-36.0 Normal (applies to no n-numeric results) [facility] Red Cell Distribution Width 11.8-15.6 Normal (appli es to non-numeric results) [facility] Platelet Count 267 x10 3/uL 150-450 Normal (applies to non-numeric results) [facility] Mean Platelet Volume 9.4-12.4 Normal (applies to non-num caitlyn results) [facility] Neutrophils% (Auto) 31.0-71.0 Normal (applies to non-nume ricci results) [facility] Lymphocytes% (Auto) 20.0-55.0 Normal (applies to non-nume ricci results) [facility] Monocytes% (Auto) 4.0-12.0 Normal (applies to non-numeri c results) [facility] Eosinophils% (Auto) 1.0-8.0 Normal (applies to non-nume ricci results) [facility] Basophils% (Auto) 0.0-2.0 Normal (applies to non-numeri c results) [facility] Immature Granulocytes% (Auto) 0.0-2.0 Normal (marcella lies to non-numeric results) [facility] Neutrophils# (Auto) 1.50-6.20 Normal (applies to non-nume ricci results) [facility] Lymphocytes# (Auto) 1.20-4.00 Normal (applies to non-nume ricci results) [facility] Monocytes# (Auto) 0.00-0.90 Above high normal [facility] Eosinophils# (Auto) 0.00-0.50 Normal (applies to non-nume ricci results) [facility] Basophils# (Auto) 0.00-0.20 Normal (applies to non-numeri c results) [facility] Immature Granulocytes# (Auto) 0.00-7.00 No rmal (applies to non-numeric results) [facility] ID Date Data Source [id number] 09/17/2019 11:53:00 PM EDT [facility] Name Value Range Interpretation Code Description Data Rashmi rce(s) Supporting Document(s) UDS Phencyclidine Screen Negative Normal (applies to non -numeric results) [facility] UDS Benzodiazepines Screen Negative Normal (applies to n on-numeric results) [facility] UDS Cocaine Screen Negative [facility] UDS Ampetamine Screen Negative [facility] UDS Cannabinoids Screen Negative Normal (applies to non- numeric results) [facility] UDS Opiates Screen Negative [facility] UDS Barbiturates Screen Negative Normal (applies to non- numeric results) [facility] UDS Tricyclic Screen Negative Normal (applies to non-num caitlyn results) [facility] Therapeutic Drug Ranges for Emergency Threshold Levels [...] treatment purposes only. ID Date Data Source [id number] 09/17/2019 11:32:00 PM EDT [facility] Collected By: Nurse Initials: AT Time Collected: 2300 Name Value Range Interpretation Code Description Data Rashmi rce(s) Supporting Document(s) Color,Urine Colorl-Dk Y Normal (applies to non-numeric res ults) [facility] Clarity,Urine Clear Normal (applies to non-numeric re sults) [facility] Specific [place],Urine 1.005-1.030 Normal (applies to non- numeric results) [facility] pH,Urine 5.0-8.0 Normal (applies to non-numeric resul ts) [facility] Protein,Urine Negative Normal (applies to non-numeric re sults) [facility] Glucose,Urine Negative Normal (applies to non-numeric re sults) [facility] Ketones,Urine Negative Normal (applies to non-numeric re sults) [facility] Blood,Urine Negative Normal (applies to non-numeric resu lts) [facility] Bilirubin,Urine Negative Normal (applies to non-numeric results) [facility] Urobilinogen,Urine 0.2-1.0 Normal (applies to non-numer ic results) [facility] Leukocyte Esterase,Urine Negative Normal (applies to non -numeric results) [facility] Nitrite,Urine Negative Normal (applies to non-numeric re sults) [facility] ID Date Data Source [id number] 09/20/2019 12:51:00 PM EDT [facility] Name Value Range Interpretation Code Description Data Rashmi e(s) Supporting Document(s) Hepatitis A Ab,IgG result Normal (applies to no n-numeric results) [facility] Result indicates no past exposure or imm unity to hepatitis A infection. REFERENCE VALUE Unvaccinated: Negative Vaccinated: Positive Test Performed by: [facility] [address] [place] [address] Seo Manager: Manas Morales M.D. Ph.D.; CLIA# [id number] ID Date Data Source [id number] 09/20/2019 11:55:00 AM EDT [facility] Name Value Range Interpretation Code Description Data Rashmi rce(s) Supporting Document(s) Hepatitis A Ab,IgG result Normal (applies to no n-numeric results) [facility] Result indicates no past exposure or imm unity to hepatitis A infection. REFERENCE VALUE Unvaccinated: Negative Vaccinated: Positive Test Performed by: [facility] [address] [place] [address] Seo Manager: Manas Morales M.D. Ph.D.; [facility]# [id number] ID Date Data Source [id number] 09/19/2019 03:33:00 PM EDT [facility] Value Range Interpretation Code Description Data Rashmi rce(s) Supporting Document(s) Chlamydia,Urine Negative Normal (applies to non-numeric results) [facility] Test Performed By: [place] [address] Director: Janet Zamora MD . GC Urine Negative Normal (applies to non-numeric resul ts) [facility] Test Performed By: [place] [address] Director: Janet Zamora MD . Methodology: Second generation nucleic acid amplification. ID Date Data Source [id number] 09/18/2019 02:36:00 PM EDT [facility] Value Range Interpretation Code Description Data Rashmi rce(s) Supporting Document(s) HIV Screen result Nonreactive Normal (applies to non-numer ic results) [facility] Test Performed By: [facility] [address] [place] [address] Director: Janet Zamora MD ID Date Data Source [id number] 09/18/2019 02:35:00 PM EDT [facility] Value Range Interpretation Code Description Data Rashmi rce(s) Supporting Document(s) CPK result 1152 U/L 39-308 [place] Test Performed By: [facility] [address] [place] [address] Director: Janet Zamora MD With CPK's greater than 800 consider Rhabdomyolysis ID Date Data Source [id number] 09/18/2019 02:35:00 PM EDT [facility] Name Value Range Interpretation Code Description Data Rashmi rce(s) Supporting Document(s) Hepatitis C Virus Ab result Nonreactive Norm al (applies to non-numeric results) [facility] Test Performed By: [facility] [address] [place] [address] Director: Janet Zamora MD ID Date Data Source [id number] 09/18/2019 02:35:00 PM EDT [facility] Value Range Interpretation Code Description Data Rashmi rce(s) Supporting Document(s) Hep Bs Ag result T-Test Nonreactive Normal (applies to non -numeric results) [facility] Test Performed By: [place] [address] Director: Janet Zamora MD ID Date Data Source [id number] 09/18/2019 02:35:00 PM EDT [facility] Value Range Interpretation Code Description Data Rashmi rce(s) Supporting Document(s) Syphilis Serology result Nonreactive Normal (applies to non-numeric results) [facility] Test Performed By: [place] [address] Director: Janet Zamora MD ID Date Data Source [id number] 09/18/2019 01:31:00 PM EDT [facility] Value Range Interpretation Code Description Data Rashmi rce(s) Supporting Document(s) HIV 1/2 Ab p24 Ag Screen Nonreactive Normal (applies to non-numeric results) [facility] Test Performed By: [facility] [address] [place] [address] Director: Janet Zamora MD ID Date Data Source [id number] 09/18/2019 01:28:00 PM EDT [facility] Value Range Interpretation Code Description Data Rashmi rce(s) Supporting Document(s) Hep C Ab-T Test Nonreactive Normal (applies to non-numeric results) [facility] Test Performed By: [facility] [address] [place] [address] Director: Janet Zamora MD ID Date Data Source [id number] 09/18/2019 01:28:00 PM EDT [facility] Name Value Range Interpretation Code Description Data Rashmi rce(s) Supporting Document(s) Hep Bs Ag Result T-Test Nonreactive Normal (applies to non -numeric results) [facility] Test Performed By: [facility] [address] [place] [address] Director: Janet Zamora MD ID Date Data Source [id number] 09/18/2019 01:28:00 PM EDT [facility] Name Value Range Interpretation Code Description Data Rashmi rce(s) Supporting Document(s) Syphilis Serology Nonreactive Normal (applies to non-numer ic results) [facility] Test Performed By: [facility] [address] [place] [address] Director: Janet Zamora MD ID Date Data Source [id number] 09/18/2019 12:35:00 PM EDT [facility] Name Value Range Interpretation Code Description Data Rashmi rce(s) Supporting Document(s) CPK 1152 U/L 39-308 Above high normal [facility] Test Performed By: [facility] [address] [place] [address] Director: Janet Zamora MD With CPK's greater than 800 consider Rhabdomyolysis ID Date Data Source [id number] 09/17/2019 11:26:00 PM EDT [facility] Name Value Range Interpretation Code Description Data Rashmi rce(s) Supporting Document(s) Sodium 136 mmol/L 136-145 Normal (applies to non-numeric resul ts) [facility] Potassium 3.5-5.1 Below low normal [facility] Chloride 100 mmol/L 98-107 Normal (applies to non-numeric resul ts) [facility] Carbon Dioxide CO2 21-32 Normal (applies to non-numer ic results) [facility] Anion Gap 5.0-16.0 Normal (applies to non-numeric resul ts) [facility] BUN 14 mg/dL 7-18 Normal (applies to non-numeric results) [facility] Creatinine,Serum 0.8-1.5 Normal (applies to non-numeric results) [facility] GFR >60 Normal (applies to non-numeric results) [facility] Glucose Level 125 mg/dL 60-99 Above high normal [facility] Reference range is only applicable when patient is fasting Note the following drug interference: Sulfasalazine Sulfapyridine Can see falsely depressed Can see falsely elevated result with up to 17% results with up to 11% decrease in measurement increase in measurement Recommend patients be collected for this test prior to administration of either drug. Calcium 8.5-10.1 Normal (applies to non-numeric resul ts) [facility] Bilirubin,Total 0.1-1.9 Normal (applies to non-numeric results) [facility] SGOT(AST) 101 U/L 15-37 Above high normal [facility] o[facility]ital Note the following drug interference: Sulfasalazine Sulfapyridine Can see falsely depressed Can see falsely elevated result with up to 10% results with up to 10% decrease in measurement increase in measurement Recommend patients be collected for this test prior to administration of either drug. SGPT(ALT) 48 U/L 12-78 Normal (applies to non-numeric resul ts) [facility] Note the following drug interference: Sulfasalazine Sulfapyridine Can see falsely depressed Can see falsely elevated result with up to 29% results with up to 10% decrease in measurement increase in measurement Recommend patients be collected for this test prior to administration of either drug. Alkaline Phosphatase 90 U/L 38-126 Normal (applies to non-num caitlyn results) [facility] can increase Alkaline Phosp le vels up to 2 times the normal adult value. Normal values for children and adolescents are 2 to 3 times the normal adult value. Total Protein 6.0-8.2 Normal (applies to non-numeric re sults) [facility] Albumin Level 3.4-5.0 Below low normal [facility] ID Date Data Source [id number] 09/17/2019 11:26:00 PM EDT [facility] Name Value Range Interpretation Code Description Data Rashmi rce(s) Supporting Document(s) Bilirubin,Direct 0.05-0.20 Normal (applies to non-numeric results) [facility] ID Date Data Source [id number] 09/17/2019 11:26:00 PM T [facility] Value Range Interpretation Code Description Data Rashmi rce(s) Supporting Document(s) Phosphorus 2.5-4.9 Normal (applies to non-numeric resul ts) [facility] ID Date Data Source [id number] 09/17/2019 11:26:00 PM [facility] Value Range Interpretation Code Description Data Rashmi rce(s) Supporting Document(s) Magnesium 1.8-2.4 Normal (applies to non-numeric resul ts) [facility] ID Date Data Source [id number] [facility] Interpretation Code Description Data Rashmi rce(s) Supporting Document(s) Thyroid Stimulate Hormone TSH 0.358-3.74 No rmal (applies to non-numeric results) [facility] ID Date Data Source [id number] 09/17/2019 11:25:00 PM [facility] Value Range Interpretation Code Description Data Rashmi rce(s) Supporting Document(s) Ethanol Less than 10.0 Normal (applies to non-numeric r esults) [facility] ID Date Data Source [id number] 09/17/2019 11:06:00 PM [facility] Value Range Interpretation Code Description Data Rashmi rce(s) Supporting Document(s) White Blood Count 3.5-10.5 Above high normal [facility] Red Blood Count 4.30-5.70 Normal (applies to non-numeric results) [facility] Hemoglobin 13.5-17.5 Below low normal [facility] Hematocrit 38.8-50.0 Below low normal [facility] Mean Corpuscular Volume 81.2-95.1 Normal (applies to non- numeric results) [facility] Mean Corpuscular Hgb 25.6-32.2 Normal (applies to non-num caitlyn results) [facility] Mean Corpuscular Hgb Conc 32.0-36.0 Normal (applies to no n-numeric results) [facility] Red Cell Distribution Width 11.8-15.6 Normal (appli es to non-numeric results) [facility] Platelet Count 248 x10 3/uL 150-450 Normal (applies to non-numeric results) [facility] Mean Platelet Volume 9.4-12.4 Below low normal [facility] Neutrophils% (Auto) 31.0-71.0 Above high normal [facility] Lymphocytes% (Auto) 20.0-55.0 Below low normal [facility] Monocytes% (Auto) 4.0-12.0 Normal (applies to non-numeri c results) [facility] Eosinophils% (Auto) 1.0-8.0 Normal (applies to non-nume ricci results) [facility] Basophils% (Auto) 0.0-2.0 Normal (applies to non-numeri c results) [facility] Immature Granulocytes% (Auto) 0.0-2.0 Normal (marcella lies to non-numeric results) [facility] Neutrophils# (Auto) 1.50-6.20 Above high normal [facility] Lymphocytes# (Auto) 1.20-4.00 Normal (applies to non-nume ricci results) [facility] Monocytes# (Auto) 0.00-0.90 Above high normal [facility] Eosinophils# (Auto) 0.00-0.50 Normal (applies to non-nume ricci results) [facility] Basophils# (Auto) 0.00-0.20 Normal (applies to non-numeri c results) [facility] Immature Granulocytes# (Auto) 0.00-7.00 No rmal (applies to non-numeric results) [facility] ID Date Data Source [id number] 09/19/2019 03:38:00 PM EDT [facility] Name Value Range Interpretation Code Description Data Rashmi rce(s) Supporting Document(s) Chlamydia,Urine result Negative Normal (applies to non-n umeric results) [facility] Test Performed By: [facility] [address] [place] [address] Director: Janet Zamora MD . GC Urine result Negative Normal (applies to non-numeric results) [facility] Test Performed By: [facility] [address] [place] [address] Director: Janet Zamora MD . Methodology: Second generation nucleic acid amplification. Procedure Social History Code Duration Value Status Description Data Source(s ) Smoking 03/25/2020 12:00:00 AM EST Unknown if ever smoked comp leted Unknown if ever smoked [facility] ([facility]) Smoking 03/12/2020 12:00:00 AM EST Unknown if ever smoked comp leted Unknown if ever smoked [facility] ([facility]) Vital Signs ID Date Data Source UNK Name Value Range Interpretation Code Description Data Source(s) Body weight 149.00 [lb_av] 149.00 [lb_av] [facility] ([facility]) Body temperature 97.5 [degF] 97.5 [degF] [facility] Respiratory rate 18 /min 18 /min [facility] ( [facility]) Heart rate 84 /min 84 /min [facility] Diastolic blood pressure 82 mm[Hg] 82 mm[Hg] [facility] ([facility]) Systolic blood pressure 123 mm[Hg] 123 mm[Hg] M [facility] ([facility]) ID Date Data Source [id number] 09/24/2019 07:54:00 AM EDT [facility] Name Value Range Interpretation Code Description Data Source(s) Weight Measurement Method 1 1 [facility] Weight (Calculated Kilograms) 69.49 69.49 [facility] Weight 2451.2 2451.2 [facility] pital Temperature Source 7 7 [facility] Temperature 98.2 98.2 [facility] Respiratory Effort 1 1 [facility] Respiratory Rate 18 18 [facility] Pulse Assessment Method 1 1 [facility] Pulse Rate 73 73 [facility] pital Height (Calculated Centimeters) 170.18 170. 18 [facility] Height 67 67 [facility] pital Blood Pressure 118/78 118/78 [facility] Body Mass Index (BMI) 24.0 24.0 [facility] Weight Measurement Method 1 1 [facility] Weight (Calculated Kilograms) 69.49 69.49 [facility] Weight 2451.2 2451.2 [facility] pital Temperature Source 7 7 [facility] Temperature 98.2 98.2 [facility] Respiratory Effort 1 1 [facility] Respiratory Rate 18 18 [facility] Pulse Assessment Method 1 1 [facility] Pulse Rate 73 73 [facility] pital Height (Calculated Centimeters) 170.18 170. 18 [facility] Height 67 67 [facility] pital Blood Pressure 118/78 118/78 [facility] Body Mass Index (BMI) 24.0 24.0 [facility] Weight Measurement Method 1 1 [facility] Weight (Calculated Kilograms) 69.49 69.49 [facility] Weight 2451.2 2451.2 [facility] pital Temperature Source 7 7 [facility] Temperature 98.2 98.2 [facility] Respiratory Effort 1 1 [facility] Respiratory Rate 18 18 [facility] Pulse Assessment Method 1 1 [facility] Pulse Rate 73 73 [facility] pital Height (Calculated Centimeters) 170.18 170. 18 [facility] Height 67 67 [facility] pital Blood Pressure 118/78 118/78 [facility] Body Mass Index (BMI) 24.0 24.0 [facility] Weight Measurement Method 1 1 [facility] Weight (Calculated Kilograms) 69.49 69.49 [facility] Weight 2451.2 2451.2 [facility] pital Temperature Source 7 7 [facility] Temperature 98.5 98.5 [facility] Respiratory Effort 1 1 [facility] Respiratory Rate 18 18 [facility] Pulse Assessment Method 4 4 [facility] Pulse Rate 88 88 [facility] pital Height (Calculated Centimeters) 170.18 170. 18 [facility] Height 67 67 [facility] pital Blood Pressure 121/79 121/79 [facility] Body Mass Index (BMI) 24.0 24.0 [facility] Weight Measurement Method 1 1 [facility] Weight (Calculated Kilograms) 69.49 69.49 [facility] Weight 2451.2 2451.2 [facility] pital Temperature Source 7 7 [facility] Temperature 98.9 98.9 [facility] spital Respiratory Effort 1 1 [facility] Respiratory Rate 17 17 [facility] Pulse Assessment Method 4 4 G [facility] Pulse Rate 64 64 [facility] pital Height (Calculated Centimeters) 170.18 170. 18 [facility] Height 67 67 [facility] pital Blood Pressure 126/67 126/67 [facility] Body Mass Index (BMI) 24.0 24.0 [facility]
== END 2020-04-29 23:16 | disposition left against medical advice (07) ==
LOC: M ED 22:12
DX: Z53.21 Procedure and treatment not carried out due to patient leaving prior to being seen by health care provider (principal)

== ENCOUNTER → 2020-07-16 | Outpatient (CLI) | payer OTHER ==
--- NOTE | 2020-07-16 10:31 | REP ---
INDICATION: STRESS FRACTURE COMPARISON: None. TECHNIQUE: AP and lateral views of the right ankle. FINDINGS: Lateral swelling consistent with inversion injury. No acute fracture or dislocation. Ankle mortise intact. No periosteal reaction. IMPRESSION: Lateral swelling. No acute fracture. <Electronically signed by Deep Coy > 07/16/20 1021
== END ==
LOC: M WUC 09:57
PROVIDERS: ATTEND Surgery
DX: M84.371A Stress fracture, right ankle, initial encounter for fracture (principal); M79.89 Other specified soft tissue disorders; X58.XXXA Exposure to other specified factors, initial encounter; Y92.9 Unspecified place or not applicable

== ENCOUNTER 2022-11-25 14:56 | Emergency (ER) | payer MEDICAID, OTHER ==
[~2022-11-25] VITALS: Ht 170.2 cm; Wt 63.4 kg
[2022-11-25 14:56] VITALS: BP 120/68; TEMP 98.4; O2SAT 99
[~2022-11-25 14:56] MED LIST changes: +DOXY-443 PO
== END 2022-11-25 16:20 | disposition left against medical advice (07) ==
LOC: M ED 14:56
DX: Z53.21 Procedure and treatment not carried out due to patient leaving prior to being seen by health care provider (principal)

== ENCOUNTER 2022-12-09 18:02 | Emergency (ER) | payer MEDICAID ==
[~2022-12-09] VITALS: Ht 170.2 cm; Wt 65.9 kg
[2022-12-09 18:02] VITALS: BP 123/92; TEMP 99.6; O2SAT 98
[2022-12-09 20:03] LABS: BASO % 0.2 % (0.0-1.0); EOS # 0.1 10^3/uL (0.0-0.5); EOS % 0.4 % (0.0-3.0); HEMATOCRIT 37.6 % (42.0-52.0); LYMPH # 2.7 10^3/uL (1.5-5.0); LYMPH % 13.8 % (24.0-44.0); MEAN CORPUSCULAR HEMOGLOBIN 31.6 pg (27.0-33.0); MEAN CORPUSCULAR HGB CONC 34.6 g/dl (32.0-36.5); MEAN CORPUSCULAR VOLUME 91.3 fl (80.0-96.0); MONO # 1.3 10^3/uL (0.0-0.8); MONO % 6.8 % (2.0-8.0); NEUTROPHILS # 15.2 10^3/uL (1.5-8.5); NEUTROPHILS % 78.3 % (36.0-66.0); PLATELET COUNT, AUTOMATED 276 10^3/uL (150-450); RED BLOOD COUNT 4.12 10^6/uL (4.30-6.10); WHITE BLOOD COUNT 19.4 10^3/uL (4.0-10.0)
[2022-12-09 20:31] LABS: ALBUMIN 3.4 G/DL (3.2-5.2); ALKALINE PHOSPHATASE 80 U/L (46-116); ALT/SGPT 43 U/L (7.0-40); AST/SGOT 25 U/L (<34); BILIRUBIN,TOTAL 0.4 MG/DL (0.3-1.2); BLOOD UREA NITROGEN 16 MG/DL (9-23); CALCIUM LEVEL 8.5 MG/DL (8.5-10.1); CARBON DIOXIDE LEVEL 28 MMOL/L (20-31); CHLORIDE LEVEL 101 MMOL/L (98-107); CREATININE FOR GFR 0.88 MG/DL (0.70-1.30); GLOMERULAR FILTRATION RATE > 60.0 (>60); GLUCOSE, FASTING 109 MG/DL (60-100); POTASSIUM SERUM 3.3 MMOL/L (3.5-5.1); SODIUM LEVEL 138 MMOL/L (136-145)
== END 2022-12-09 22:59 | disposition left against medical advice (07) ==
LOC: M ED 18:02
DX: Z53.21 Procedure and treatment not carried out due to patient leaving prior to being seen by health care provider (principal)

== ENCOUNTER 2023-01-30 13:19 | Emergency (ER) | payer MEDICAID ==
[~2023-01-30] VITALS: Ht 170.2 cm; Wt 70.5 kg
[2023-01-30] MEDS ORDERED: ELIM5CRE2 TOP (15:56)
[2023-01-30 16:07] VITALS: BP 132/70; TEMP 98.6; O2SAT 96
== END 2023-01-30 16:10 | disposition home or self-care (01) ==
LOC: M ED 13:19
DX: B86 Scabies (principal); F41.9 Anxiety disorder, unspecified; F20.9 Schizophrenia, unspecified; F43.10 Post-traumatic stress disorder, unspecified; F17.200 Nicotine dependence, unspecified, uncomplicated; F19.10 Other psychoactive substance abuse, uncomplicated; F10.10 Alcohol abuse, uncomplicated; Z79.2 Long term (current) use of antibiotics; Z79.899 Other long term (current) drug therapy